=== PATIENT | female | born 1965 ===

== ENCOUNTER 2018-02-19 16:07 | Emergency (ER) | payer MEDICARE, MEDICAID ==
[2018-02-19 16:07] VITALS: BMI 29.6
[2018-02-19 17:14] LABS: BASO % 0.5 % (0.0-2.0); EOS # 0.1 K/uL (0.0-0.7); LYMPH % 30.4 % (20.0-40.0); MEAN CELL VOLUME 83.3 fl (81.0-99.0); MEAN CORPUSCULAR HGB CONC 33.6 g/dL (33.0-37.0); MEAN PLATELET VOLUME 7.9 fl (7.2-11.7); MONO # 0.7 K/uL (0.0-0.8); MONO % 10.3 % (0.0-10.0); NEUT # 3.7 K/uL (1.8-7.0); NEUT % 56.8 % (50.0-75.0); RBC 4.64 Mil/uL (3.80-5.20); RED CELL DISTRIBUTION WIDTH 13.5 % (11.5-14.5); WHITE BLOOD COUNT 6.5 K/uL (4.8-10.8)
[2018-02-19 17:18] LABS: ALB/GLOB RATIO 1.3 (1.0-2.1); ALBUMIN 4.3 g/dL (3.5-5.0); ALT/SGPT 43 U/L (9-52); AST/SGOT 51 U/L (14-36); BLOOD UREA NITROGEN 19 mg/dl (7-17); CALCIUM 9.6 mg/dL (8.4-10.2); GFR AFRICAN-AMERICAN > 60; GFR NON-AFRICAN AMERICAN > 60
--- NOTE | 2018-02-19 17:53 | ED PDOC ---
HPI: General Adult Time Seen by Provider: 02/19/18 16:22 Chief Complaint (Nursing): Abdominal Pain Chief Complaint (Provider): Pelvic pain History Per: Patient History/Exam Limitations: no limitations Onset/Duration Of Symptoms: Persistent (x 2 weeks) Current Symptoms Are (Timing): Still Present Additional History Per: Patient Additional Complaint(s): 52yo female, with history of bilateral oopherectomy, comes to ER with complaints of pelvic pain x 2 weeks. Patient reports she feels like "something is moving, going back and forth" from her left pelvic to suprapubic area. She reports the pain has been worsening since onset and occurs more frequently and regularly. She also states yesterday she had decreased urination, this morning had bilateral flank pain and today had increased urination but no dysuria or hematuria. Patient reports lower abdominal bloating; she denies any vaginal bleeding or discharge. Of note, patient states 3 days ago, she had a lumbar spine stimulator placed for her chronic lower back pain due to spondylolisthesis ; she reports her pelvic discomfort was present prior to the surgery. Otherwise , patient deneis any nausea, vomiting, diarrhea, fever, or chills. She offers no additional medical complaints. PMD: Dr. Daylin Lanier Past Medical History Reviewed: Historical Data, Nursing Documentation, Vital Signs Vital Signs: Last Vital Signs Temp 98.2 F 02/19/18 21:56 Pulse 68 02/19/18 21:56 Resp 18 02/19/18 21:56 BP 141/89 02/19/18 21:56 Pulse Ox 100 02/19/18 21:56 - Medical History PMH: HTN, Chronic Pain (back pain) Denies: Chronic Kidney Disease - Surgical History Surgical History: Appendectomy, Back Surgery (lumbar spine stimulator) Other surgeries: bilateral oopherectomy - Family History Family History: States: No Known Family Hx, Unknown Family Hx - Living Arrangements Living Arrangements: With Family - Social History Current smoker - smoking cessation education provided: No Alcohol: None Drugs: Denies - Home Medications Home Medications: Ambulatory Orders Medication Instructions Recorded Lisinopril/Hydrochlorothiazide 1 tab PO DAILY 09/08/14 [Lisinopril-Hydrochlorothiazide 25 mg-20 mg] - Allergies Allergies/Adverse Reactions: Allergies Allergy/AdvReac Type Severity Reaction Status Date / Time No Known Allergies Allergy Verified 02/19/18 16:10 Review of Systems ROS Statement: Except As Marked, All Systems Reviewed And Found Negative (as per HPI) Constitutional: Negative for: Fever, Chills Gastrointestinal: Positive for: Abdominal Pain. Negative for: Nausea, Vomiting , Diarrhea Genitourinary Female: Positive for: Pelvic Pain. Negative for: Dysuria, Hematuria, Vaginal Discharge, Vaginal Bleeding Physical Exam - Reviewed Nursing Documentation Reviewed: Yes Vital Signs Reviewed: Yes - Physical Exam Appears: Positive for: Well, Non-toxic, No Acute Distress Head Exam: Positive for: ATRAUMATIC, NORMOCEPHALIC Skin: Positive for: Warm, Dry Eye Exam: Positive for: EOMI, PERRL ENT: Negative for: Pharyngeal Erythema, Tonsillar Exudate Neck: Positive for: Painless ROM, Supple Cardiovascular/Chest: Positive for: Regular Rate, Rhythm, Chest Non Tender Respiratory: Positive for: Normal Breath Sounds. Negative for: Respiratory Distress Gastrointestinal/Abdominal: Positive for: Soft, Tenderness (+ referred tenderness to left lower quadrant while palpating right lower quadrant; + mild tenderness to palpation of left lower quadrant and suprapubic region). Negative for: Mass, Distended, Guarding, Rebound Back: Positive for: Normal Inspection. Negative for: L CVA Tenderness, R CVA Tenderness Extremity: Positive for: Normal ROM. Negative for: Deformity Lymphatic: Negative for: Adenopathy Neurologic/Psych: Positive for: Alert. Negative for: Aphasia - Laboratory Results Result Diagrams: 02/19/18 17:00 02/19/18 17:00 - ECG O2 Sat by Pulse Oximetry: 98 (RA) Pulse Ox Interpretation: Normal Medical Decision Making Medical Decision Making: Impression: Lower abdominal pain Differential: Included but not limited to fibroids, colitis, diverticulitis, UTI , cystitis Plan: -- Labs -- US Transvaginal -- UDip 1809 US Transvaginal FINDINGS: UTERUS: The uterus is normal in size measuring 6.7 x 4.8 x 3.5 cm with no myometrial mass appreciated. No cystic changes are identified throughout the uterus with the cervix grossly nonfocal as well. The endometrium is not clearly identified despite transvaginal technique. ENDOMETRIUM: As above. CERVIX: As above. RIGHT OVARY: The right ovary is not identified in this patient who is status post prior right oophorectomy. LEFT OVARY: The left ovary is not identified in this patient who is status post prior right oophorectomy. FREE FLUID: No significant free fluid noted. OTHER FINDINGS: None. IMPRESSION: Neither ovary is identified in this patient status post bilateral oophorectomy in the past. No suspicious cystic or solid adnexal mass is identified bilaterally. The uterus appears grossly nonfocal as well as the cervix however the endometrium is not identified despite transvaginal technique. 1828 US findings discussed with patient. CT ordered for further evaluation. 2118 CT Abdomen/Pelvis FINDINGS: Lung bases: See below. ABDOMEN: Liver: Unremarkable. No mass. Gallbladder and bile ducts: Unremarkable. No calcified stones. No ductal dilation. Pancreas: Unremarkable. No ductal dilation. Spleen: Unremarkable. No splenomegaly. Adrenals: 8mm left adrenal nodule. Kidneys and ureters: Unremarkable. No solid mass. No hydronephrosis. Stomach and bowel: Scattered diverticulosis of the colon. No evidence of diverticulitis. PELVIS: Appendix: The appendix is not identified with certainty, although no definite secondary signs of appendicitis are seen in its expected location. Bladder: Unremarkable. Reproductive: Unremarkable as visualized. ABDOMEN and PELVIS: Intraperitoneal space: Unremarkable. No free air. No significant fluid collection. Bones/joints: No acute fracture. No dislocation. Soft tissues: Bilateral breast implants. granuloma in the right lung base. Vasculature: Unremarkable. No abdominal aortic aneurysm. Lymph nodes: Unremarkable. No enlarged lymph nodes. IMPRESSION: Scattered diverticulosis of the colon. No evidence of diverticulitis. The appendix is not identified with certainty, although no definite secondary signs of appendicitis are seen in its expected location. 2143 Findings discussed with patient. Labs reviewed and are unremarkable. Patient stable for discharge home. Scribe Attestation: Documented by Emily Wakefield, acting as a scribe for Filomena Acevedo MD Provider Scribe Attestation: All medical record entries made by the Scribe were at my direction and personally dictated by me. I have reviewed the chart and agree that the record accurately reflects my personal performance of the history, physical exam, medical decision making, and the department course for this patient. I have also personally directed, reviewed, and agree with the discharge instructions and disposition. Disposition - Clinical Impression Clinical Impression: Abdominal pain - Disposition Referrals: Karlos Garcia MD [Family Provider] - Disposition: Routine/Home Disposition Time: 21:00 Condition: STABLE Additional Instructions: BLANDITO COMIDO Y SUSANNE MUCHO LIQUIDOS VISITA BELTRE DOCTOR EN 2-3 GUZMAN A CHEQAR DE NUEVO REGRESA SI SIENTE PEOR. Instructions: Acute Abdomen (Belly Pain) Forms: [facility] (Spanish) Print Language: GREENLANDIC
--- NOTE | 2018-02-19 18:11 | US ---
Date of service: 02/19/2018 HISTORY: pelvic pain (s/p bilateral oopherectomy 2 yrs) COMPARISON: None available. TECHNIQUE: Transvaginal ultrasound of the pelvis was performed in longitudinal and transverse projections submitted for interpretation. FINDINGS: UTERUS: The uterus is normal in size measuring 6.7 x 4.8 x 3.5 cm with no myometrial mass appreciated. No cystic changes are identified throughout the uterus with the cervix grossly nonfocal as well. The endometrium is not clearly identified despite transvaginal technique. ENDOMETRIUM: As above. CERVIX: As above. RIGHT OVARY: The right ovary is not identified in this patient who is status post prior right oophorectomy. LEFT OVARY: The left ovary is not identified in this patient who is status post prior right oophorectomy. FREE FLUID: No significant free fluid noted. OTHER FINDINGS: None. IMPRESSION: Neither ovary is identified in this patient status post bilateral oophorectomy in the past. No suspicious cystic or solid adnexal mass is identified bilaterally. The uterus appears grossly nonfocal as well as the cervix however the endometrium is not identified despite transvaginal technique.
[2018-02-19] MEDS ORDERED: Iohexol 240 (50 ml) PO STA (18:14)
[2018-02-19] MEDS ORDERED: Iohexol 240 (50 ml) ONE (18:24)
[2018-02-19 19:24] VITALS: RESP 18
[2018-02-19] MEDS ORDERED: Iohexol 300 100 ML IJ ONE (20:24)
[2018-02-19] MEDS ORDERED: Sodium Chloride 0.9% 50 ML IV ONE (20:24)
[2018-02-19 21:57] VITALS: BP 141/89; PULSE 68; TEMP 98.2
--- NOTE | 2018-02-20 10:19 | CT ---
Date of service: 02/19/2018 PROCEDURE: CT Abdomen and Pelvis with contrast HISTORY: LLQ pain COMPARISON: None. TECHNIQUE: Contrast dose: 95 mL Omnipaque 300 Radiation dose: Total exam DLP = 683.59 mGy-cm. This CT exam was performed using one or more of the following dose reduction techniques: Automated exposure control, adjustment of the mA and/or kV according to patient size, and/or use of iterative reconstruction technique. FINDINGS: LOWER THORAX: No infiltrate/ effusion. Bilateral breast augmentation prostheses. Calcified granuloma in the right lower lobe. LIVER: Unremarkable. No gross lesion or ductal dilatation. GALLBLADDER AND BILE DUCTS: Unremarkable. PANCREAS: Unremarkable. No gross lesion or ductal dilatation. SPLEEN: Unremarkable. ADRENALS: Unremarkable. No mass. KIDNEYS AND URETERS: Unremarkable. No hydronephrosis. No solid mass. VASCULATURE: Unremarkable. No aortic aneurysm. BOWEL: Sigmoid diverticulosis. No evidence of diverticulitis. No bowel obstruction. No other abnormal bowel loops are identified. APPENDIX: Not identified. No secondary findings to suggest acute appendicitis. PERITONEUM: Unremarkable. No free fluid. No free air. LYMPH NODES: Unremarkable. No enlarged lymph nodes. BLADDER: Nondistended REPRODUCTIVE: Normal uterus BONES: Grade 1-2 anterolisthesis at L5-S1 with bilateral L5 spondylolysis. OTHER FINDINGS: None. IMPRESSION: Sigmoid diverticulosis without evidence of diverticulitis. No acute abnormality. Grade 1-2 spondylolisthesis at L5-S1 with bilateral spondylolysis. The preliminary findings for this examination were reported by [employer] at 9:19 p.m. on 02/19/2018. There is concurrence of this report with the preliminary findings.
[2018-02-20 18:01] VITALS: O2SAT 98
== END 2018-02-19 22:09 | disposition home or self-care (01) ==
LOC: H.ER 16:07
DX: R10.2 Pelvic and perineal pain (principal); K57.30 Diverticulosis of large intestine without perforation or abscess without bleeding; G89.29 Other chronic pain; I10 Essential (primary) hypertension
CPT/HCPCS: 74177; 76830; 80053; 85025; 99284; Q9966; Q9967